=== PATIENT | male | born 1980 | race Caucasian/White ===

== ENCOUNTER 2023-07-05 14:21 | Emergency (ER) | payer BC, SELFPAY ==
[2023-07-05 14:24] VITALS: PULSE 96; RESP 24; TEMP 36; O2SAT 95; BMI 32.1
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
[2023-07-05] MEDS: droperidoL 2.5 MG/ML inj IM (17:47)
[2023-07-05] MEDS: MIDAZOLAM HCL 1 MG/ML inj 2 MG IM (17:48)
--- NOTE | 2023-07-05 18:45 | ED.NURSE ---
pt resting in room quietely at this time
--- NOTE | 2023-07-05 18:46 | CRLHL7_ITS ---
For Patients: As a result of the Century Cures Act, medical imaging exams and procedure reports are released immediately into your electronic medical record. You may view this report before your referring provider. If you have questions, please contact your health care provider. INDICATION: Tremors. TECHNIQUE: Noncontrast CT images of the brain. COMPARISON: None. FINDINGS: The ventricles and sulci are within normal limits for patient age. No midline shift or hydrocephalus. The edward-white differentiation is maintained. Small hypoattenuation overlying the right insula likely represents an arachnoid cyst. No acute intracranial hemorrhage or pathologic extra-axial fluid collection. The globes are symmetric. The calvarium is intact. The visualized paranasal sinuses and mastoid air cells are clear. IMPRESSION: No acute intracranial hemorrhage. Please note that all CT scans at this facility use dose modulation, iterative reconstruction, and/or weight-based dosing when appropriate to reduce radiation dose to as low as reasonably achievable. Dictated by Aditya Sullivan MD @ 07/05/2023 7:14:00 PM (Electronically Signed)
[2023-07-05 19:31] VITALS: BP 130/85; PULSE 73; RESP 18; O2SAT 98
[2023-07-05 19:48] LABS: Basophils Absolute Auto 0.03 K/uL (0.00-0.30); Basophils Percent Auto 0.5 % (0.0-3.0); Eosinophils Absolute Auto 0.13 K/uL (0.00-0.50); Hematocrit 37.1 % (37.0-53.0); Hemoglobin* 12.7 gm/dL (13.5-17.5); Immature Granulocytes Abs Auto 0.01 K/uL (0.00-0.30); Immature Granulocytes Pct Auto 0.2 %; Lymphocytes Absolute Auto 2.02 K/uL (0.90-2.90); Lymphocytes Percent Auto 30.8 % (20-44); Mean Corpuscular HGB Conc 34 gm/dL (32-36); Mean Corpuscular Hemoglobin 31 pg (26-34); Mean Corpuscular Volume 91 fL (80-100); Neutrophils Absolute Auto 3.91 K/uL (1.7-7.0); Neutrophils Percent Auto 59.5 % (42.0-72.0); Platelet Count* 189 K/uL (140-440); RDW Coefficient of Variation % 11.8 % (11.5-15.5); Red Blood Count 4.08 m/uL (4.30-5.90); White Blood Count* 6.56 K/uL (4.50-11.00)
[2023-07-05 19:51] LABS: Slide Review Reflex No
--- NOTE | 2023-07-05 19:56 | ED.NURSE ---
Pt report given to oncsheila RN
[2023-07-05 20:03] LABS: Chloride* 106 mmol/L (96-114); Potassium* 3.7 mmol/L (3.6-5.1); Sodium* 140 mmol/L (135-149)
[2023-07-05 20:05] LABS: Creatinine* 0.8 mg/dL (0.5-1.5); Estimated Glomerular Filt Rate 112 ml/min
[2023-07-05 20:06] LABS: Anion Gap 8 mEq/L (7-15); Blood Urea Nitrogen* 16 mg/dL (5-24); Calcium* 8.9 mg/dL (8.4-10.6); Carbon Dioxide* 26 mmol/L (20-32); Glucose* 140 mg/dL (60-115); Magnesium* 2.3 mg/dL (1.5-2.6)
[2023-07-05 20:07] VITALS: BP 135/80
[2023-07-05 20:17] LABS: C Reactive Protein* < 0.5 mg/dL (0.5-1.0)
--- NOTE | 2023-07-05 21:21 | ED.NURSE ---
Patient and livery car driver walked out of room to the lobby and planned to exit as the patient was ready to leave and sick of being in the room. Staff were waiting on TSH results. Provider brought out to the lobby and reviewed discharge instructions. Patient laying on vestibule in entryway as discharge instructions reviewed.
[2023-07-05 21:39] LABS: Free T4 Free Thyroxine* 1.21 ng/dL (0.70-1.85)
== END 2023-07-05 21:25 | disposition home or self-care (01) ==
PROVIDERS: Emergency Provider Emergency Medicine
DX: G25.5 Other chorea (principal); R94.6 Abnormal results of thyroid function studies; Z21 Asymptomatic human immunodeficiency virus [HIV] infection status
CPT/HCPCS: 36415; 70450; 80048; 83735; 84439; 84443; 85025; 86140; 96372; 99284; 99285; J1790; J2250